=== PATIENT | male | born 1950 | race Caucasian/White ===

== ENCOUNTER 2021-04-18 14:06 | Emergency (ER) | payer MEDICARE ==
[2021-04-18] MEDS ORDERED: Furosemide 40 MG/4 ML VIAL IVPUSH ONE (15:12)
[2021-04-18] MEDS ORDERED: Sodium Chloride 0.9% 1,000 ML IV SCH (15:15)
--- NOTE | 2021-04-18 15:17 | EDM.PDOC ---
ED HPI GENERAL MEDICAL PROBLEM - General Chief Complaint: Chest Pain Stated Complaint: CHEST PAIN Time Seen by Provider: 04/18/21 15:00 Source of Information: Reports: Patient, Family History Limitations: Reports: No Limitations - History of Present Illness INITIAL COMMENTS - FREE TEXT/NARRATIVE: 71-year-old male presents to the ED reporting left precordial chest discomfort for about 2 hours yesterday afternoon that went away on its own. It returned this morning when he was just sitting around at about 0800 hrs. He took 2 nitroglycerin tablets about 5 minutes apart at 0900 hrs. The first 1 did not do anything. The second 1 gave back of a headache and lowered his blood pressure where he had to lie flat. Of note this is the first time he is taken nitroglycerin since bypass surgery 15 years ago. He did take away the chest discomfort to some degree. He states the chest pain lasted until approximately 1300 hrs. and it is gone at the time of my exam. He does feel more short of breath over the last 2 to 3 days. No noted increased swelling in his lower extremities. He still smokes cigarettes usually half a pack to a pack per day smoker's cough but not bringing up any sputum. No hemoptysis. Headache is now gone. Of note he states he had a myocardial infarction about 15 years ago and underwent triple bypass surgery as well as mitral valve replacement/repair. Of note he is not on Coumadin and therefore he must of had a bioprosthetic valve or just a valvuloplasty. O2 sats were 97% on room air. Onset: Today, Sudden Onset Date: 04/18/21 Onset Time: 08:00 (Chest pain lasted from 0 800 hours to 1300 hours today.) Duration: Hour(s):, Other (Pain was gone the time I seen him at 1500 hrs.) Location: Reports: Chest (Left precordial chest pressure discomfort. He cannot report any definite radiation to head neck back or left upper extremity.) Quality: Reports: Ache, Pressure Severity: Moderate (Rated it as a 7 out of 10.) Improves with: Reports: Rest, Other (He debates whether the nitroglycerin tablets took his pain away at all.) Worsens with: Reports: None Context: Reports: Other (Chest pain came on at rest.). Denies: Activity, Exercise, Lifting, Sick Contact, Trauma Associated Symptoms: Reports: Chest Pain, Cough (Now gone but was present from around 0 800 hours to 1300 hours today.), cough w sputum ( Smoker's cough), Malaise, Shortness of Breath (Chronic for him), Weakness (Weakness in his legs.). 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 (see below) (He took 2 nitroglycerin 0.4 mg tablets at home prior to coming to the ED) - Related Data Allergies Allergy/AdvReac Type Severity Reaction Status Date / Time No Known Allergies Allergy Verified 04/18/21 15:47 Home Meds: Home Meds Aspirin 81 mg PO DAILY 04/18/21 [History] Bumetanide [Bumex] 2 mg PO DAILY #30 tab 04/18/21 [Rx] Gabapentin [Neurontin] 300 mg PO TID 04/18/21 [History] Spironolactone [Aldactone] 25 mg PO DAILY #30 tablet 04/18/21 [Rx] atenoloL [Atenolol] 25 mg PO DAILY 04/18/21 [History] Past Medical History HEENT History: Reports: Impaired Vision Cardiovascular History: Reports: Afib, Automatic Implantable Cardioverter Defibrillators, Bypass (Triple bypass in 2005.), CAD, Heart Valve Replacement (Mitral valve neuroplasty versus replacement with bioprosthetic valve.), [place] (About 15 years ago.) Other Cardiovascular History: defibrillator 2018 Musculoskeletal History: Reports: Fracture, Other (See Below) ([place] to have cervical 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 Denies: Fever, Chills, Weight Loss HEENT: Reports: Hearing Loss Respiratory: Reports: Shortness of Breath (Mildly hard of hearing but does not wear hearing aids), Cough, Sputum (Smoker's cough occasional sputum production). Denies: Wheezing, Pleuritic Chest Pain, Hemoptysis Cardiovascular: Reports: Chest Pain (Central chest left precordial chest pain this morning and yesterday afternoon for 2 hours), Dyspnea on Exertion (Chronically). Denies: Blood Pressure Problem, Claudication, Edema, Lightheadedness, Orthopnea, Palpitations Endocrine: Reports: Fatigue GI/Abdominal: Reports: No Symptoms : Reports: No Symptoms, Frequency, Other (No nocturia) Musculoskeletal: Reports: Neck Pain, Shoulder Pain, Back Pain (Chronic) Skin: Reports: No Symptoms Neurological: Reports: Other (Has neuropathy in both upper extremities numbness tingling. States he will often drop things out of his left hand without even being aware that he is doing it. Has neuropathy in both lower extremities as well) Psychiatric: Reports: No Symptoms Hematologic/Lymphatic: Reports: No Symptoms Immunologic: Reports: No Symptoms ED EXAM, GENERAL - Physical Exam Exam: See Below Exam Limited By: No Limitations General Appearance: Alert, WD/WN, No Apparent Distress, Other (Slightly sallow appearance to his skin.) Eye Exam: Bilateral Eye: Normal Inspection (No blepharal pallor or scleral icterus), PERRL Throat/Mouth: Other (Tongue is mildly dry and coated). No: Normal Teeth Head: Atraumatic, Normocephalic Neck: Normal Inspection, Full Range of Motion, Limited Range of Motion (Loss of 15 degrees lateral rotation and lateral flexion 10 degrees extension and 10 degrees flexion.), Tender Lateral. No: Carotid Bruit, Lymphadenopathy (L), Lymphadenopathy (R), Thyromegaly Respiratory/Chest: Respiratory Distress (Mild tachypnea at rest.), Decreased Breath Sounds (Decreased air entry to the lower 20% lung ibanez bilaterally.), Rales (Rales left lower lung field), Wheezing. No: Lungs Clear (Expiratory wheezing bilaterally), Normal Breath Sounds Cardiovascular: Normal Peripheral Pulses, Regular Rate, Rhythm, No Edema, No Gallop, No Murmur, Other (Defibrillator pacemaker is present left upper anterior chest). No: JVD Peripheral Pulses: 2+: Carotid (L), Carotid (R), Posterior Tibial (L), Posterior Tibial (R), Dorsalis Pedis (L), Dorsalis Pedis (R) GI/Abdominal: Normal Bowel Sounds, Soft, Non-Tender, No Organomegaly Back Exam: Normal Inspection, Decreased Range of Motion (Decreased flexion- extension of the lumbar spine.), Paraspinal Tenderness (Bilaterally.). No: CVA Tenderness (L), CVA Tenderness (R) Extremities: Normal Range of Motion, Non-Tender, No Pedal Edema Neurological: Alert, Oriented, CN II-XII Intact, Normal Cognition Psychiatric: Normal Affect, Normal Mood Skin Exam: Warm, Dry, Intact, No Rash, Other (Sallow color to his skin.). No: Normal Color #1 Interpretation EKG Date: 04/18/21 Time: 14:24 Rhythm: NSR Rate (Beats/Min): 65 (Occasional PVCs) [place]: Normal P-Wave: Enlarged (Suspect by atrial hypertrophy) QRS: Other (Left ventricular hypertrophy pattern early R wave transition consider septal hypertrophy) ST-T: Other (T wave inversion leads II, III and aVF consider inferior wall is chemia. There is a diffuse early repolarization pattern) EKG Interpretation Comments: Abnormal ECG Course - Vital Signs Last Recorded V/S: Last Vital Signs Temp 36.6 C 04/18/21 14:28 Pulse 66 04/18/21 14:28 Resp 21 H 04/18/21 14:28 BP 128/72 04/18/21 14:28 Pulse Ox 97 04/18/21 14:28 - Orders/Labs/Meds Orders: Active Orders 24 hr Category Date Time Status Sodium Chloride 0.9% [Normal Saline] 1,000 ml Med 04/18/21 15:15 Active IV ASDIRECTED Medication Orders Sodium Chloride (Normal Saline) 1,000 mls @ 50 mls/hr IV ASDIRECTED MARK ANTHONY Last Admin: 04/18/21 16:09 Dose: 50 mls/hr Documented by: AMILCAR Labs: Laboratory Tests 04/18/21 04/18/21 04/18/21 Range/Units 15:00 15:00 15:00 WBC 5.52 (4.23-9.07) K/mm3 RBC 4.70 (4.63-6.08) M/mm3 Hgb 15.3 (13.7-17.5) gm/dl Hct 47.5 (40.1-51.0) % MCV 101.1 H (79.0-92.2) fl MCH 32.6 H (25.7-32.2) pg MCHC 32.2 (32.2-35.5) g/dl RDW Std Deviation 49.5 H (35.1-43.9) fL Plt Count 173 (163-337) K/mm3 MPV 10.4 (9.4-12.3) fl Neut % (Auto) 58.3 (34.0-67.9) % Lymph % (Auto) 30.8 (21.8-53.1) % [place] % (Auto) 8.9 (5.3-12.2) % Eos % (Auto) 1.3 (0.8-7.0) Baso % (Auto) 0.7 (0.1-1.2) % Neut # (Auto) 3.22 (1.78-5.38) K/mm3 Lymph # (Auto) 1.70 (1.32-3.57) K/mm3 [place] # (Auto) 0.49 (0.30-0.82) K/mm3 Eos # (Auto) 0.07 (0.04-0.54) K/mm3 Baso # (Auto) 0.04 (0.01-0.08) K/mm3 PT 10.3 (9.7-12.0) SECONDS INR 0.93 APTT 39.1 H (21.7-31.4) SECONDS Sodium 139 (136-145) mEq/L Potassium 3.9 (3.5-5.1) mEq/L Chloride 106 (98-107) mEq/L Carbon Dioxide 24 (21-32) mEq/L Anion Gap 12.9 (5-15) BUN 13 (7-18) mg/dL Creatinine 1.1 (0.7-1.3) mg/dL Est Cr Clr Drug Dosing 69.57 mL/min Estimated GFR (MDRD) > 60 (>60) mL/min BUN/Creatinine Ratio 11.8 L (14-18) Glucose 85 (70-99) mg/dL Calcium 8.8 (8.5-10.1) mg/dL Magnesium (1.8-2.4) mg/dL Total Bilirubin 0.4 (0.2-1.0) mg/dL AST 24 (15-37) U/L ALT 23 (16-63) U/L Alkaline Phosphatase 84 (46-116) U/L Troponin I < 0.017 (0.00-0.056) ng/mL C-Reactive Protein (<1.0) mg/dL NT-Pro-B Natriuret Pep (0-125) pg/mL Total Protein 7.5 (6.4-8.2) g/dl Albumin 3.8 (3.4-5.0) g/dl Globulin 3.7 gm/dL Albumin/Globulin Ratio 1.0 (1-2) 04/18/21 04/18/21 Range/Units 15:00 15:00 WBC (4.23-9.07) K/mm3 RBC (4.63-6.08) M/mm3 Hgb (13.7-17.5) gm/dl Hct (40.1-51.0) % MCV (79.0-92.2) fl MCH (25.7-32.2) pg MCHC (32.2-35.5) g/dl RDW Std Deviation (35.1-43.9) fL Plt Count (163-337) K/mm3 MPV (9.4-12.3) fl Neut % (Auto) (34.0-67.9) % Lymph % (Auto) (21.8-53.1) % [place] % (Auto) (5.3-12.2) % Eos % (Auto) (0.8-7.0) Baso % (Auto) (0.1-1.2) % Neut # (Auto) (1.78-5.38) K/mm3 Lymph # (Auto) (1.32-3.57) K/mm3 [place] # (Auto) (0.30-0.82) K/mm3 Eos # (Auto) (0.04-0.54) K/mm3 Baso # (Auto) (0.01-0.08) K/mm3 PT (9.7-12.0) SECONDS INR APTT (21.7-31.4) SECONDS Sodium (136-145) mEq/L Potassium (3.5-5.1) mEq/L Chloride (98-107) mEq/L Carbon Dioxide (21-32) mEq/L Anion Gap (5-15) BUN (7-18) mg/dL Creatinine (0.7-1.3) mg/dL Est Cr Clr Drug Dosing mL/min Estimated GFR (MDRD) (>60) mL/min BUN/Creatinine Ratio (14-18) Glucose (70-99) mg/dL Calcium (8.5-10.1) mg/dL Magnesium 2.0 (1.8-2.4) mg/dL Total Bilirubin (0.2-1.0) mg/dL AST (15-37) U/L ALT (16-63) U/L Alkaline Phosphatase (46-116) U/L Troponin I (0.00-0.056) ng/mL C-Reactive Protein < 0.2 (<1.0) mg/dL NT-Pro-B Natriuret Pep 2347 H (0-125) pg/mL Total Protein (6.4-8.2) g/dl Albumin (3.4-5.0) g/dl Globulin gm/dL Albumin/Globulin Ratio (1-2) Meds: Medications Generic Name Dose Route Start Last Admin Trade Name Freq PRN Reason Stop Dose Admin Sodium Chloride 1,000 mls @ 50 mls/hr 04/18/21 15:15 04/18/21 16:09 Normal Saline IV 50 mls/hr ASDIRECTED MARK ANTHONY Administration Discontinued Medications Generic Name Dose Route Start Last Admin Trade Name Freq PRN Reason Stop Dose Admin Furosemide 40 mg 04/18/21 15:12 04/18/21 16:09 Furosemide 40 Mg/4 Ml Vial IVPUSH 04/18/21 15:13 40 mg NOW ONE Administration - Radiology Interpretation Free Text/Narrative:: 71-year-old male presents to the ED for evaluation of chest discomfort primarily in the left precordium. States it lasted for about 2 hours last evening came on spontaneously without any exertion. It returned this morning about 0800 hrs. while he was sitting around and lasted until about 1300 hrs. when it dissipated. He really cannot tell if it radiated into his neck or upper extremity as he is cervical disc problems with radicular pain in both upper extremities particularly the left. He always has back pain and could not tell if there was any worsening of the back pain underneath his left shoulder blade. He does feel more short of breath the last few days. History of coronary disease with [place] 15 years ago requiring triple bypass and repair of his mitral valve. He has had never had to use nitroglycerin tablets until this morning. He took 1 at 0900 hrs. in about 5 minutes later took a second tablet which dropped his blood pressure and made him have to lay flat for quite some time. Associated bad headache. It never really helped much with the chest discomfort. He is eaten only a small amount today. He continues to smoke cigarettes half pack to a pack per day. He has a mild smoker's cough. There might denies any hemoptysis. O2 sats are 97% on room air but he is mildly tachypneic at breaths of 21/min. Lungs show a few crackles in both lung bases worse on the left side as compared to the right. Plan chest x-ray. ECG. Labs to include cardiac markers serum magnesium and BNP. - Re-Assessments/Exams Free Text/Narrative Re-Assessment/Exam: 04/18/21 15:33 White count is 5.52 with auto differential neutrophil count of 58.3%. Hemoglobin 15.3 with hematocrit of 47.5 MCV is elevated at 101.1 I suspect from daily alcohol use. Platelet counts 173,000 04/18/21 16:15 chest x-ray done portably reveals heart to be moderately enlarged. Sternotomy is noted. Prosthetic heart valve is seen. AICD is also present left upper anterior chest. Pulmonary vessels are slightly increased presumably due to mild CHF. No acute osseous abnormalities appreciated. Findings are compatible with mild congestive heart failure Sodium 139 with a potassium of 3.9. Chloride is 106 with a bicarb of 24. Anion gap is 12.9. BUN is 13. Creatinine is 1.1. Estimated GFR is greater than 60. Glucose is 85 with a calcium of 8.8. Liver function is normal. Troponin I is less than 0.017 total protein 7.5 albumin fraction 3.8 globulin 3.7 04/18/21 17:27 PT is 10.3 with an INR of 0.93 PTT is mildly elevated at 39.1. The reason for this is unclear. BNP is elevated at 2347. Patient advised that cardiac markers at this time are normal. It appears that it is heart failure primarily that is causing his current chest discomfort and dyspnea. I am therefore going to place him on Bumex 2 mg with Aldactone 25mg am only for now. Renal function and serum potassium are normal at this time. He reports has been on furosemide in the past but it does not work. He reports he is scheduled for an echocardiogram in the near future. He should follow up with cardiology within the next 2 to 3 weeks. He will need a repeat renal function and serum potassium level due to being on Aldactone he already steps on the scale every morning and will continue to do so and write down his weights. Departure - Departure Time of Disposition: 17:30 Disposition: Home, Self-Care 01 Reason for Transfer *Q: Other Condition: Fair Clinical Impression: Congestive heart failure Qualifiers: Heart failure type: diastolic Heart failure chronicity: unspecified Qualified Code(s): I50.30 - Unspecified diastolic (congestive) heart failure Prescriptions: Spironolactone [Aldactone] 25 mg PO DAILY #30 tablet Bumetanide [Bumex] 2 mg PO DAILY #30 tab Referrals: PCP,Not In Area [Primary Care Provider] - Forms: ED Department Discharge Additional Instructions: Evaluation in the emergency room today in regards to central chest discomfort associated with increased shortness of breath for the last few days. Chest discomfort lasted a couple of hours yesterday and a good 5 hours this morning. Chest x-ray reveals mildly enlarged heart . Lab tests reveal normal cardiac markers and no evidence of heart attack. They do reveal increased fluid in the lungs which I believe is causing current symptoms of chest heaviness and shortness of breath. Suggest using Bumex 2 mg tablet every morning and Aldactone 25 mg with it in the mornings to help reduce fluid collection in your lungs. Follow-up with maintenance director as planned after echocardiogram to recheck medications and make sure kidney function remains normal on the water pills. Sepsis Event Note (ED) - Evaluation Sepsis Screening Result: No Definite Risk - Focused Exam Vital Signs: Vital Signs Temp Pulse Resp BP Pulse Ox 04/18/21 14:28 36.6 C 66 21 H 128/72 97 - My Orders Last 24 Hours: My Active Orders 04/18/21 15:15 Sodium Chloride 0.9% [Normal Saline] 1,000 ml IV ASDIRECTED - Assessment/Plan Last 24 Hours: My Active Orders 04/18/21 15:15 Sodium Chloride 0.9% [Normal Saline] 1,000 ml IV ASDIRECTED
--- NOTE | 2021-04-18 15:55 | CR ---
Chest: Portable view of the chest was obtained. Comparison: No prior chest imaging is available. Heart is enlarged. Sternotomy is noted. Prosthetic heart valve is seen. AICD is present. Pulmonary vessels are slightly increased presumably due to mild CHF. No acute osseous abnormality is appreciated. Impression: 1. Findings suspicious for mild CHF. Diagnostic code #3
== END 2021-04-18 18:15 | disposition home or self-care (01) ==
LOC: JD.ED 14:06
DX: I50.30 Unspecified diastolic (congestive) heart failure (principal); I48.91 Unspecified atrial fibrillation; I25.810 Atherosclerosis of coronary artery bypass graft(s) without angina pectoris; I25.2 Old myocardial infarction; I49.3 Ventricular premature depolarization; F17.210 Nicotine dependence, cigarettes, uncomplicated; Z79.82 Long term (current) use of aspirin; Z79.899 Other long term (current) drug therapy; R06.02 Shortness of breath
CPT/HCPCS: 36415; 71045; 80053; 83735; 83880; 84484; 85025; 85610; 85730; 86140; 93005; 96374; 99285; J1940; J7030; 93010; 99284

== ENCOUNTER 2021-07-23 20:43 | Emergency (ER) | payer MEDICARE ==
[2021-07-23] MEDS ORDERED: Ondansetron 4 MG/2 ML SDV IVPUSH ONE (21:21)
[2021-07-23] MEDS ORDERED: Morphine 4 MG/ML Syringe IVPUSH ONE ×2 (21:21→21:48)
[2021-07-23] MEDS ORDERED: Ketorolac 15 MG/ML SDV IVPUSH ONE (22:21)
--- NOTE | 2021-07-23 22:44 | EDM.PDOC ---
<Roshan Salinas - Last Filed: 07/24/21 08:34> ED HPI GENERAL MEDICAL PROBLEM - General Chief Complaint: Abdominal Pain Stated Complaint: ABD PAIN Time Seen by Provider: 07/23/21 22:00 - Related Data Allergies Allergy/AdvReac Type Severity Reaction Status Date / Time bupropion [From Wellbutrin] Allergy Other Verified 07/23/21 21:26 lisinopril Allergy Other Verified 07/23/21 21:26 lorazepam Allergy Other Verified 07/23/21 21:26 metoprolol Allergy Other Verified 07/23/21 21:26 pregabalin Allergy Other Verified 07/23/21 21:26 Ieltufu-[id number] Reductase Allergy Other Verified 07/23/21 21:26 Inhibitor Home Meds: Home Meds Aspirin 81 mg PO DAILY 04/18/21 [History] Bumetanide [Bumex] 2 mg PO DAILY #30 tab 04/18/21 [Rx] Gabapentin [Neurontin] 300 mg PO TID 04/18/21 [History] Spironolactone [Aldactone] 25 mg PO DAILY #30 tablet 04/18/21 [Rx] atenoloL [Atenolol] 25 mg PO DAILY 04/18/21 [History] Isosorbide Mononitrate [Isosorbide Mononitrate ER] 30 mg PO DAILY 07/23/21 [History] Course - Re-Assessments/Exams Free Text/Narrative Re-Assessment/Exam: 07/24/21 08:[address] Dyer. The COVID is negative. I called [facility] back and talked with Dr López the hospitalist contract associate and he accepted the patient. Departure - Departure Time of Disposition: 08:35 Disposition: DC/Tfer to Acute Hospital 02 Condition: Poor Clinical Impression: Small bowel obstruction Gastritis Qualifiers: Gastritis type: unspecified gastritis Chronicity: acute Gastritis bleeding: without bleeding Qualified Code(s): K29.00 - Acute gastritis without bleeding - Discharge Information Referrals: PCP,Not In Area [Primary Care Provider] - Forms: ED Department Discharge <Pablo Dyer - Last Filed: 07/24/21 19:35> ED HPI GENERAL MEDICAL PROBLEM - History of Present Illness INITIAL COMMENTS - FREE TEXT/NARRATIVE: Patient is a 71-year-old male with a past medical history of chronic back pain, hypertension, smoking presenting with a chief complaint of abdominal pain. Patient reports abrupt onset of abdominal pain this afternoon. Patient states the pain was initially in the left upper quadrant. He states the pain now radiates to the left lower quadrant and also across the abdomen. He states the pain is moderate to severe nature. Nothing seems to make symptoms better or worse. Pain is not worse or improved with movement. Has not taken any pain medication prior to arrival. He does report some associated nausea without vomiting. No diarrhea. No fevers. No prior abdominal surgeries or history of kidney stones. Abdominal Pain Score (Numeric/FACES): 9 Past Medical History HEENT History: Reports: Impaired Vision Cardiovascular History: Reports: Afib, Automatic Implantable Cardioverter Defibrillators, Bypass, CAD, Heart Valve Replacement, [place] Other Cardiovascular History: defibrillator 2018 Musculoskeletal History: Reports: Fracture, Other (See Below) Neurological History: Reports: Neuropathy, Peripheral Social & Family History - Tobacco Use Tobacco Use Status *Q: Current Every Day Tobacco User Years of Tobacco use: 60 Packs/Tins Daily: 0.2 - Caffeine Use Caffeine Use: Reports: None - Recreational Drug Use Recreational Drug Use: No - Living Situation & Occupation Living situation: Reports: Single Occupation: Unemployed ED ROS GENERAL - Review of Systems Review Of Systems: See Below Free Text/Narrative/Comment: In addition to that documented in the HPI above, the additional ROS was obtained: Constitutional: Denies fevers or chills Eyes: Denies vision changes ENMT: Denies sore throat CV: Denies chest pain Resp: Denies SOB GI: Denies vomiting or diarrhea : Denies painful urination MSK: Denies recent trauma Skin: Denies new rashes Neuro: Denies new numbness or tingling or weakness Endocrine: Denies unexpected weight loss Heme: Denies bleeding disorders ED EXAM, GI/ABD - Physical Exam Exam: See Below Text/Narrative:: I have reviewed the triage vital signs Const: Well nourished, well developed, appears stated age Eyes: Pupils Equal and reactive to light bilaterally, no conjunctival injection HENT: No signs of trauma or swelling, Neck supple without meningismus CV: Regular Rate Rhythm, Warm, well-perfused extremities RESP: Unlabored respiratory effort GI: soft, non-tender, non-distended, no masses MSK: No gross deformities appreciated Skin: Warm, dry. No rashes Neuro: Alert, copy director II-XII grossly intact. Sensation and motor function of extremities grossly intact. Psych: Appropriate mood and affect. #1 Interpretation EKG Date: 07/23/21 Time: 20:53 Rhythm: NSR Rate (Beats/Min): 92 [place]: Normal P-Wave: Present QRS: Normal ST-T: Other (T wave inversions lead II and lead III.) QT: Normal EKG Interpretation Comments: For baseline. Artifact present. Premature ventricular complexes present. Abnormal EKG. Course - Vital Signs Last Recorded V/S: Last Vital Signs Temp 35.8 C L 07/23/21 20:55 Pulse 74 07/24/21 06:30 Resp 16 07/24/21 06:30 BP 137/77 07/24/21 06:30 Pulse Ox 94 L 07/24/21 06:30 - Orders/Labs/Meds Labs: Laboratory Tests 07/23/21 07/23/21 07/23/21 Range/Units 21:00 21:00 21:40 WBC 12.05 H (4.23-9.07) K/mm3 RBC 4.65 (4.63-6.08) M/mm3 Hgb 14.9 (13.7-17.5) gm/dl Hct 46.4 (40.1-51.0) % MCV 99.8 H (79.0-92.2) fl MCH 32.0 (25.7-32.2) pg MCHC 32.1 L (32.2-35.5) g/dl RDW Std Deviation 50.2 H (35.1-43.9) fL Plt Count 213 (163-337) K/mm3 MPV 10.3 (9.4-12.3) fl Neut % (Auto) 80.4 H (34.0-67.9) % Lymph % (Auto) 13.4 L (21.8-53.1) % [place] % (Auto) 5.5 (5.3-12.2) % Eos % (Auto) 0.3 L (0.8-7.0) Baso % (Auto) 0.2 (0.1-1.2) % Neut # (Auto) 9.68 H (1.78-5.38) K/mm3 Lymph # (Auto) 1.62 (1.32-3.57) K/mm3 [place] # (Auto) 0.66 (0.30-0.82) K/mm3 Eos # (Auto) 0.04 (0.04-0.54) K/mm3 Baso # (Auto) 0.03 (0.01-0.08) K/mm3 Sodium 141 (136-145) mEq/L Potassium 3.9 (3.5-5.1) mEq/L Chloride 103 (98-107) mEq/L Carbon Dioxide 24 (21-32) mEq/L Anion Gap 17.9 H (5-15) BUN 21 H (7-18) mg/dL Creatinine 1.3 (0.7-1.3) mg/dL Est Cr Clr Drug Dosing 56.77 mL/min Estimated GFR (MDRD) 55 (>60) mL/min BUN/Creatinine Ratio 16.2 (14-18) Glucose 170 H (70-99) mg/dL Lactic Acid (0.4-2.0) mmol/L Calcium 9.3 (8.5-10.1) mg/dL Total Bilirubin 0.5 (0.2-1.0) mg/dL AST 19 (15-37) U/L ALT 29 (16-63) U/L Alkaline Phosphatase 88 (46-116) U/L Total Protein 8.2 (6.4-8.2) g/dl Albumin 3.8 (3.4-5.0) g/dl Globulin 4.4 gm/dL Albumin/Globulin Ratio 0.9 L (1-2) Lipase 167 (73-393) U/L Urine Color Yellow (Yellow) Urine Appearance Clear (Clear) Urine pH 6.0 (5.0-8.0) Ur Specific [place] 1.015 (1.005-1.030) Urine Protein Negative (Negative) Urine Glucose (UA) Negative (Negative) Urine Ketones Negative (Negative) Urine Occult Blood Negative (Negative) Urine Nitrite Negative (Negative) Urine Bilirubin Negative (Negative) Urine Urobilinogen 0.2 (0.2-1.0) Ur Leukocyte Esterase Negative (Negative) U Hyaline Cast (Auto) 0-5 (0-5) /lpf Urine RBC Not seen (0-5) /hpf Urine WBC Not seen (0-5) /hpf Ur Epithelial Cells Not seen (0-5) /hpf Urine Bacteria Rare (FEW) /hpf Urine Mucus Rare (FEW) /hpf SARS-CoV-2 RNA (NASRIN) (NEGATIVE) 07/23/21 07/24/21 Range/Units 21:40 07:11 WBC (4.23-9.07) K/mm3 RBC (4.63-6.08) M/mm3 Hgb (13.7-17.5) gm/dl Hct (40.1-51.0) % MCV (79.0-92.2) fl MCH (25.7-32.2) pg MCHC (32.2-35.5) g/dl RDW Std Deviation (35.1-43.9) fL Plt Count (163-337) K/mm3 MPV (9.4-12.3) fl Neut % (Auto) (34.0-67.9) % Lymph % (Auto) (21.8-53.1) % [place] % (Auto) (5.3-12.2) % Eos % (Auto) (0.8-7.0) Baso % (Auto) (0.1-1.2) % Neut # (Auto) (1.78-5.38) K/mm3 Lymph # (Auto) (1.32-3.57) K/mm3 [place] # (Auto) (0.30-0.82) K/mm3 Eos # (Auto) (0.04-0.54) K/mm3 Baso # (Auto) (0.01-0.08) K/mm3 Sodium (136-145) mEq/L Potassium (3.5-5.1) mEq/L Chloride (98-107) mEq/L Carbon Dioxide (21-32) mEq/L Anion Gap (5-15) BUN (7-18) mg/dL Creatinine (0.7-1.3) mg/dL Est Cr Clr Drug Dosing mL/min Estimated GFR (MDRD) (>60) mL/min BUN/Creatinine Ratio (14-18) Glucose (70-99) mg/dL Lactic Acid 1.4 (0.4-2.0) mmol/L Calcium (8.5-10.1) mg/dL Total Bilirubin (0.2-1.0) mg/dL AST (15-37) U/L ALT (16-63) U/L Alkaline Phosphatase (46-116) U/L Total Protein (6.4-8.2) g/dl Albumin (3.4-5.0) g/dl Globulin gm/dL Albumin/Globulin Ratio (1-2) Lipase (73-393) U/L Urine Color (Yellow) Urine Appearance (Clear) Urine pH (5.0-8.0) Ur Specific [place] (1.005-1.030) Urine Protein (Negative) Urine Glucose (UA) (Negative) Urine Ketones (Negative) Urine Occult Blood (Negative) Urine Nitrite (Negative) Urine Bilirubin (Negative) Urine Urobilinogen (0.2-1.0) Ur Leukocyte Esterase (Negative) U Hyaline Cast (Auto) (0-5) /lpf Urine RBC (0-5) /hpf Urine WBC (0-5) /hpf Ur Epithelial Cells (0-5) /hpf Urine Bacteria (FEW) /hpf Urine Mucus (FEW) /hpf SARS-CoV-2 RNA (NASRIN) Negative (NEGATIVE) Meds: Medications Discontinued Medications Generic Name Dose Route Start Last Admin Trade Name Kareen PRN Reason Stop Dose Admin Acetaminophen 650 mg 07/24/21 04:53 07/24/21 05:10 Acetaminophen 325 Mg Tab PO 07/24/21 04:54 650 mg NOW ONE Administration Al Hydroxide/Mg Hydroxide 30 0 ml 07/23/21 23:31 07/23/21 23:51 ml/ Lidocaine HCl 15 ml PO 07/23/21 23:32 45 ml ONETIME ONE Administration Diatrizoate Meglum/Diatrizoate Sod 45 ml 07/24/21 06:19 07/24/21 06:29 Diatrizoate Meglumine/Diatrizoate Sodium 37% 120 Ml Bottle PO 07/24/21 06:20 45 ml ONETIME ONE Administration Lactated Ringer's 1,000 mls @ 1,000 mls/hr 07/23/21 23:59 07/24/21 00:10 Ringers, Lactated IV 07/24/21 00:58 1,000 mls/hr .BOLUS ONE Administration Iopamidol 100 ml 07/24/21 06:19 07/24/21 06:29 Iopamidol 612 Mg/Ml 100 Ml Bottle IVPUSH 07/24/21 06:20 100 ml ONETIME ONE Administration Ketorolac Tromethamine 15 mg 07/23/21 22:21 07/23/21 22:28 Ketorolac 15 Mg/Ml Sdv IVPUSH 07/23/21 22:22 15 mg ONETIME ONE Administration Morphine Sulfate 4 mg 07/23/21 21:21 07/23/21 21:29 Morphine 4 Mg/Ml Syringe IVPUSH 07/23/21 21:22 4 mg ONETIME ONE Administration Morphine Sulfate 4 mg 07/23/21 21:48 07/23/21 22:00 Morphine 4 Mg/Ml Syringe IVPUSH 07/23/21 21:49 4 mg ONETIME ONE Administration Ondansetron HCl 4 mg 07/23/21 21:21 07/23/21 21:29 Ondansetron 4 Mg/2 Ml Sdv IVPUSH 07/23/21 21:22 4 mg ONETIME ONE Administration Pantoprazole Sodium 40 mg 07/23/21 23:31 07/23/21 23:52 Pantoprazole 40 Mg Vial IVPUSH 07/23/21 23:32 40 mg ONETIME ONE Administration Sodium Chloride 10 ml 07/24/21 06:19 07/24/21 06:29 Sodium Chloride 0.9% 10 Ml Sdv FLUSH 07/24/21 06:20 10 ml ONETIME ONE Administration - Assessment/Plan Assessment:: 71-year-old male with abdominal pain. CT is suggestive of early small bowel obstruction. Laboratory studies did not show any signs of active ischemia such as high lactic acid or significantly high white blood cell count. A repeat CT scan was done with oral contrast to evaluate and this demonstrated continued SBO. At this point, no beds are available in the hospital and he will require transfer for further treatment and management. Signed out to Dr. Salinas pending Covid test for transfer.
[2021-07-23] MEDS ORDERED: Pantoprazole 40 MG Vial IVPUSH ONE (23:31)
[2021-07-23] MEDS ORDERED: Alum Hydrox/Mag Hydrox/Simeth 30 ML, Lidocaine 2% 15 ML PO ONE ×2 (23:31)
[2021-07-23] MEDS ORDERED: Lactated Ringers 1,000 ML IV ONE (23:59)
[2021-07-24] MEDS ORDERED: Acetaminophen 325 MG Tab PO ONE (04:53)
[2021-07-24] MEDS ORDERED: Diatrizoate Meglumine/Diatrizoate Sodium 37% 120 ML Bottle PO ONE (06:19)
[2021-07-24] MEDS ORDERED: Sodium Chloride 0.9% 10 ML SDV FLUSH ONE (06:19)
[2021-07-24] MEDS ORDERED: Iopamidol 612 MG/ML 100 ML Bottle IVPUSH ONE (06:19)
--- NOTE | 2021-07-24 08:45 | CT ---
CT abdomen and pelvis Technique: Multiple axial sections were obtained from above the dome of the diaphragm inferiorly through the pubic symphysis. No intravenous or oral contrast was utilized. Reconstructed coronal and sagittal images were obtained. Comparison: No previous CT abdomen or pelvis study is available. Findings: Heart is enlarged. Visualized lung bases show nothing acute. Small cyst is noted within the dome of the left lobe of the liver measuring 1.2 cm. Spleen size is normal. Gallbladder contains a small gallstone. Right adrenal gland is normal. Left adrenal gland shows a nodule containing calcifications measuring about 1.5 cm. Kidneys show a cyst within the upper left kidney measuring 1.9 cm on this exam. No ureteral dilatation or ureteral stone is seen. Pancreas shows no discrete abnormality. Abdominal aorta shows distal aneurysmal dilatation measuring about 2.9 cm. Atherosclerotic change is seen within the abdominal aorta and iliac vessels with no aneurysm. No retroperitoneal adenopathy is seen. Appendix is seen which appears normal. No pelvic mass or adenopathy is seen. Prostate gland is slightly enlarged which is believed to be age related. Mild wall thickening is seen within the stomach. There is dilatation of small bowel being seen suspicious for possible small bowel obstruction. Bone window settings were reviewed which show vacuum disc phenomena within the L3-4 through L5-S1 discs. There is evidence of an annular rupture with epidural air being seen at the L4-5 and L5-S1 levels. Other degenerative change scattered within the spine is seen. Impression: 1. Wall thickening is noted within the stomach raising the question of gastritis either due to peptic ulcer disease or viral. Please correlate with patient's symptoms. 2. Dilated small bowel is seen. This is most likely due to adhesions. 3. Heart is mildly enlarged. Calcified gallstone is noted. Small nodule is noted within the adrenal gland. 4. Mild aneurysmal dilatation of the distal aorta with AP dimension of 2.9 cm. 5. Degenerative change is seen within the spine. Diagnostic code #3 I agree with preliminary report from [facility], finalized on 07/24/21, 12:28 AM [employer]ILER [employer]OWER, code 1
--- NOTE | 2021-07-24 08:54 | CT ---
CT abdomen and pelvis Technique: Multiple axial sections were obtained from above the dome of the diaphragm inferiorly through the pubic symphysis. Intravenous and oral contrast were utilized. Delayed images were also obtained through the abdomen and pelvis. Reconstructed coronal and sagittal images were obtained. Comparison: Prior CT abdomen and pelvis study performed without contrast dated 07/23/21. Findings: Visualized lung bases show nothing acute. Heart is mildly enlarged. Liver shows a low density lesion within the dome of the left lobe which measures approximately 1.4 cm in size and is felt compatible with a cyst. Liver shows no additional abnormality. Gallbladder contains no calcified gallstones. Spleen size is normal. Adrenal glands show a small nodule within the left side which contains calcifications. This nodule measures about 1.3 cm in size and is most likely benign. Pancreas shows no discrete abnormality. Kidneys show symmetric contrast enhancement. Cyst is noted within the upper pole of the left kidney measuring 2.1 cm in size. Delayed images show contrast within the distal ureters as well as contrast seen within the bladder. Abdominal aorta shows mild distal aneurysmal dilatation with AP dimension measuring 2.9 cm. No retroperitoneal adenopathy is seen. No mesenteric abnormalities are seen. Prostate gland is enlarged compatible with the patient's age. No pelvic mass or adenopathy is seen. Appendix is seen which is normal in size. Gastric wall appears to be somewhat thickened presumably due to gastritis. Small bowel is moderately enlarged with the distal ileum appearing normal in size. Etiology is not apparent and most likely represents adhesions. Bone window settings were reviewed which show scattered degenerative changes within the spine. Findings most severe at L4-5 and L5-S1 with vacuum phenomena. Epidural air is noted posteriorly at both levels compatible with annular tear. Impression: 1. Gastric wall thickening raising the question of gastritis. This could relate to peptic ulcer disease as well as viral infection. 2. Mildly dilated small bowel with no etiology seen raising the possibility of adhesion. 3. Mild aneurysmal dilatation of the distal aorta measuring 2.9 cm. 4. Other findings as noted above which appear to be chronic. Diagnostic code #3 I agree with preliminary report from [facility], finalized on 07/24/21, 7:44 AM ETHICS OFFICER, code 1
== END 2021-07-24 09:10 ==
LOC: JD.ED 20:43
DX: K29.00 Acute gastritis without bleeding (principal); K56.609 Unspecified intestinal obstruction, unspecified as to partial versus complete obstruction; I10 Essential (primary) hypertension; I25.10 Atherosclerotic heart disease of native coronary artery without angina pectoris; I25.2 Old myocardial infarction; Z95.1 Presence of aortocoronary bypass graft; Z72.0 Tobacco use; Z88.8 Allergy status to other drugs, medicaments and biological substances; Z79.82 Long term (current) use of aspirin; Z20.822 Contact with and (suspected) exposure to COVID-19
CPT/HCPCS: 36415; 74176; 74177; 80053; 81001; 83605; 83690; 85025; 93005; 96374; 96375; 96376; 99285; A9270; C9113; J1885; J2270; J2405; J7120; Q9963; Q9967; U0002; 93010